=== PATIENT | male | born 2000 | race Caucasian/White ===

== ENCOUNTER 2023-09-15 14:37 | Emergency (ER) | payer OTHER, SELFPAY ==
[2023-09-15] VITALS (7 sets, daily range): BP systolic 112–165; BP diastolic 80–87; PULSE 64–108; RESP 14–19; TEMP 36.8–38.7; O2SAT 99–100
--- NOTE | 2023-09-15 15:12 | ED.FEVER ---
HPI - Fever General Chief Complaint: Fever Stated Complaint: FEVER/SWOLLEN TONSILS Source: patient, RN notes reviewed and old records reviewed Mode of arrival: ambulatory Limitations: no limitations History of Present Illness HPI Narrative: 23-year-old male to [facility] for complaint of fever, vomiting, headache chills, decreased appetite for 2 days. Patient endorses fever up to 103? last night. Patient has been treating at home with ibuprofen and Tylenol with some relief. Patient reports that he was treated by his primary care provider approximately 5 weeks ago for a tonsil infection with Augmentin and prednisone. Patient states that he did resolution of symptoms after treatment. Patient endorses history of allergies to mold and flour. 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 Patient denies change in urinary or bowel habits. Patient denies chest pain, shortness of breath, dizziness, allergies to medications. Patient appears uncomfortable and tired an exam room. Respirations even and nonlabored. No signs of acute distress. Related Data Allergies Allergy/AdvReac Type Severity Reaction Status Date / Time No Known Allergies Allergy Verified 09/15/23 14:50 Review of Systems Review of Systems: All systems reviewed & are unremarkable except as noted in HPI and below Constitutional: Constitutional: Reports as per HPI, Reports body ache(s), Reports chills, Reports fatigue, Reports fever(s) and Reports poor appetite Eyes: Eyes: Reports no additional eye complaints ENT: Reports as per HPI, Reports nasal congestion and Reports sore throat Cardiovascular: Cardiovascular: Reports no additional cardiovascular complaints, Denies chest pain and Denies dyspnea Respiratory: Respiratory: Reports no additional respiratory complaints, Denies cough and Denies dyspnea Gastrointestinal: Gastrointestinal: Reports nausea and Reports vomiting Musculoskeletal: Musculoskeletal: Reports as per HPI and Reports myalgias Neurologic: Reports system reviewed and no additional complaints, except as documented Psychiatric: Psychiatric: Reports no additional psychiatric complaints [facility] Family History Family History Grandparent Heart disease Social History Social History Smoking status: Never smoker Second hand tobacco smoke exposure: No Alcohol intake: never Substance use: never Substance use type: does not use Lack of Transportation: No Lack of Food: Never True Current Housing: I Have Housing Concerned About Future Housing: No Difficulty Paying Gas/Electric Bills: No Difficulty Paying for Meds: No Currently Unemployed: No Education: High School Diploma/GED Difficulty w/ Childcare or Family Care: No Gender identity (if verbalized by the patient): Male Sexual Orientation (if Verbalized by the Patient): Straight or Heterosexual Spiritual care concerns: No Agree to blood products: Yes Comments At the time of my signature, I reviewed and agree with the nursing past medical, surgical, social, and family history. There is no relevant family history pertinent to the patient complaint. Exam Const: General: cooperative, no acute distress, well developed, alert, ill appearing acutely, tired appearing, uncomfortable, well groomed and well nourished Nutritional Appearance: well nourished Orientation/consciousness: patient oriented x3 Limitations: no limitations HENMT: Head: normal to inspection Ears: external ears normal and TM abnormal erythematous on the right Face/Nose/Sinus: Normal external nose present, Normal nares present, normal facial exam, No erythema and No edema Face and sinus: normal facial exam, no erythema and no edema Mouth: Yes Normal oral and palatal mucosa present Throat: abnormal tonsil bilat
[2023-09-15] MEDS: IBUPROFEN 600 MG TABLET PO (15:17)
[2023-09-15] MEDS: ONDANSETRON HCL ODT 4 MG TABLET PO (15:53)
--- NOTE | 2023-09-15 16:57 | PC.NURSE ---
1550- pt fever is greater than prior, and he had emesis of the motrin and water he took with it. and pt is pale in face at present - [employer] notified pt is feeling worse and she is in talking with him about transferring to er for further testing and care. pt and his mother agree on [facility] er.
== END 2023-09-15 16:05 | disposition short-term general hospital (02) ==
PROVIDERS: Emergency Provider Nurse Practitioner Family; PCP Family Medicine
DX: R50.9 Fever, unspecified (principal)
CPT/HCPCS: 87081; 87880; 99213; A9270; G0463